=== PATIENT | female | born 1975 | race Caucasian/White ===

== ENCOUNTER → 2017-02-12 | Outpatient (CLI) | payer OTHER ==
[2016-02-18 15:12] VITALS: BP 104/58
[~2017-02-12] MED LIST: BIOT25006 PO; CALC-558 PO; CHOL2000 PO; CRAN500C6 PO; CYAN500T13 PO; CYCL10TA2 PO; ESCITALOPRAM OX10 MG PO; ESOM20CA PO; FERR-26 PO; GABA-586 PO; HYDR-2762 PO; HYDR-963 PO; MULT-47 PO; OXYC5TAB95 PO; PANT40TA3 PO; WARF3TAB7 PO; [UNRECOGNIZED DRUG - CODE] PO
[2017-02-12 16:45] LABS: BASO # 0.1 x10^3/uL (0.0-0.2); BASO % 1 % (0-3); EOS % 6 % (0-3); HEMATOCRIT 36.5 % (36.0-47.0); LYMPH # 1.9 x10^3/uL (1.0-4.8); LYMPH % 21 % (24-48); MEAN CORPUSCULAR HEMOGLOBIN 29 pg (25-35); MEAN CORPUSCULAR HGB CONC 33 g/dL (31-37); MEAN CORPUSCULAR VOLUME 87 fL (79-100); MONO % 5 % (0-9); NEUT % 68 % (31-73); PLATELET COUNT 244 x10^3/uL (140-400); RED BLOOD COUNT 4.17 x10^6/uL (3.50-5.40); RED CELL DISTRIBUTION WIDTH 13.1 % (11.5-14.5); WHITE BLOOD COUNT 8.9 x10^3/uL (4.0-11.0)
[2017-02-12 16:48] LABS: BILIRUBIN,URINE NEGATIVE (NEG); GLUCOSE,URINE NEGATIVE (NEG); NITRITE,URINE NEGATIVE (NEG); PROTEIN,URINE NEGATIVE (NEG-TRACE)
[2017-02-12 16:56] LABS: PROTHROMBIN TIME PATIENT 12.1 SEC (11.7-14.0)
--- NOTE | 2017-02-12 17:00 | EKG ---
[facility] [address] [place] [address] Test Date: 2017-02-12 Test Time: 17:05:15 Pat Name: WYATT GÓMEZ Department: Room: Gender: F Deck Lid F[employer]: : 1975 Requested By: JOHNNIE BYERS Order Number: [id number] Reading MD: Terri Jacobo Measurements Intervals [place] Rate: 82 P: 48 TN: 136 QRS: 32 QRSD: 76 T: 26 QT: 362 QTc: 426 Interpretive Statements SINUS RHYTHM NORMAL EKG Electronically Signed On 02-13-2017 12:32:45 CDT by Terri Jacobo
[2017-02-12 17:05] LABS: BACTERIA,URINE FEW /HPF (0-FEW); RBC,URINE RARE /HPF (0-2); SQUAMOUS EPITHELIAL CELL,UR OCC /LPF; WBC,URINE OCC /HPF (0-4)
[2017-02-12 17:15] LABS: ALBUMIN 3.8 g/dL (3.4-5.0); CALCIUM 8.8 mg/dL (8.5-10.1); CREATININE 0.6 mg/dL (0.6-1.0); GFR 109.1; POTASSIUM 4.4 mmol/L (3.5-5.1)
--- NOTE | 2017-02-13 08:35 | RAD ---
Exam performed: 2 views of the chest. Indication: PRE-SURG EVAL Date of Service:02/12/2017 6:14 PM . Comparison : None available Findings: PA and lateral radiographs of the chest reveal a normal cardiomediastinal contour. The lungs are clear. No pleural fluid is seen. The visualized osseous structures are unremarkable. Impression: Radiographically normal chest.
== END | disposition home or self-care (01) ==
LOC: SURGPAT 15:46
PROVIDERS: ATTEND Orthopaedic Surgery
DX: Z01.818 Encounter for other preprocedural examination (principal); Z96.652 Presence of left artificial knee joint
CPT/HCPCS: 36415; 71020; 80048; 81001; 82040; 85025; 85610; 85651; 85730; 87641; 93005

== ENCOUNTER 2019-04-29 08:04 | Day surgery (SDC) | payer OTHER ==
[~2019-04-29] VITALS: Ht 157.5 cm; Wt 88.5 kg
[~2019-04-29 08:04] MED LIST changes: +BUPIVACAINE-EPI 0.5%-1:200000 MPF 30 ML VIAL. INJ ONE; -FERR-26 PO; +FERR325T14 PO; -GABA-586 PO; +GABA300C18 PO; -HYDR-2762 PO; +HYDR-2765 PO; +HYDR-3135 PO; -HYDR-963 PO; +HYDROmorphone 2 MG/ML VIAL IV PRN; +IV RINGERS,LACTATED 1000ML 1,000 ML IV SCH; +MORPHINE SULFATE 2 MG/ML VIAL. IV PRN; +OXYC1TAB19 PO; +OXYC5TAB4 PO; -OXYC5TAB95 PO; -PANT40TA3 PO; +PANT40TA77 PO; +PROCHLORPERAZINE 10 MG/2 ML VIAL. IV PRN; +WARF3TAB50 PO; -WARF3TAB7 PO; +ceFAZolin 2GM PREMIX 2 GM/50 ML BAG IV ONE; +fentaNYL PF VIAL 100 MCG/2 ML VIAL IV PRN
[2019-04-29] MEDS ORDERED: DEXAMETHASONE SOD PHOS 4 MG/ML VIAL ONE (08:06)
[2019-04-29] MEDS ORDERED: LIDOCAINE 2% PF 5 ML VIAL. ONE (08:06)
[2019-04-29] MEDS ORDERED: MIDAZOLAM HCL/PF 2 MG/2 ML VIAL. ONE (08:06)
[2019-04-29] MEDS ORDERED: PROPOFOL 20 ML IV ONE (08:06)
[2019-04-29] MEDS ORDERED: fentaNYL PF VIAL 100 MCG/2 ML VIAL ONE (08:06)
[2019-04-29] MEDS ORDERED: ONDANSETRON PF 4 MG/2 ML VIAL. ONE (08:06)
[2019-04-29] MEDS ORDERED: PANT20TA2 PO (08:23)
[2019-04-29] MEDS ORDERED: HYDR-3135 PO (08:31)
[2019-04-29] MEDS ORDERED: GABA600T7 PO (08:32)
[2019-04-29] MEDS ORDERED: SEVOFLURANE 61 TO 120 MINUTES. IH ONE (09:37)
[2019-04-29] MEDS ORDERED: OXYC1TAB22 PO (09:50)
[2019-04-29] MEDS ORDERED: oxyCODONE/APAP 10/325 1 TAB TABLET PO ONE (10:00)
[2019-04-29 10:40] VITALS: BP 128/65
--- NOTE | 2019-04-29 10:55 | DISCH ---
DISCHARGE INSTRUCTIONS Condition on Discharge Condition on Discharge: Stable Activity After Discharge Activity Instructions for Disc: Progressive ambulation Bathing Instructions: Shower-keep dressing dry, No Tub Bath until see Exercise Instruction after Dis: Exercise per therapy Driving Instructions after Dis: Do not drive (usually about 2 weeks before reaction time returns on the right leg to safely stomp on the brakes, could use the left leg instead as a brake foot) Weight Bearing Status after Di: As tolerated Diet after Discharge Diet Texture: Regular Liquid Texture: Thin Liquid Swallowing Supervision: None needed Wound Incision Care Wound/Incision Care: Ice to area for comfort, Keep wound elevated, Change dressing (remove dressing in 3 days may then shower as long as there is no drainage) Contacting the DRAlee after DC Call your doctor for: Concerns you may have Follow-Up Follow up with: Dr. Chauhan 7-10 days Treatment/Equipment after DC Adaptive Equipment Issued: None JOHNNIE CHAUHAN MD Apr 29, 2019 10:55
--- NOTE | 2019-04-29 14:14 | PDOC4 ---
Operative Note Operative Note Date of surgery: 04/29/2019 Preoperative diagnosis: Painful medial plica right knee with history of right knee arthroplasty Postoperative diagnosis: Same Operative procedure: Right knee arthroscopy debridement of medial parapatellar plica Surgeon: Tien Assist: Brendan mcgraw assist Anesthesia: Gen. Estimated blood loss: 5 mL Complications: None Operative indications: Please see my orthopedic clinic note for detailed operative indications and note that Patient is a 43-year-old female that underwent more remote right total knee arthroplasty and had a recent episode of a fall with subsequent pain and clicking over the medial aspect of her knee. Knee x-rays showed a solidly implanted well-positioned components of total knee arthroplasty and she clinically appeared to have symptoms from a medial plica that was popping along with motion of her knee. She had undergone a diagnostic injection into the extra-articular portion of the joint capsule which did significantly decrease her symptoms. She still continues to have some now increasing pain and popping with flexing extending the knee. I had gone over with her the possibility of arthroscopic treatment with removal of the plica and that while this is not certain to take care of all her symptoms I think the diagnostic injection gave good evidence that this seems to be a significant contribution to her problems. We had discussed the risks benefits postoperative course of the procedure including the possibility of infection continued pain nerve or blood vessel damage medical or other anesthetic consultations among other she wishes to proceed with surgical evaluation and treatment. Operative text: Patient was identified procedure verified patient placed in the supine position on the operating table. After adequate amounts of general anesthesia were administered the right lower extremity was prepped and draped in standard sterile fashion with a thigh tourniquet. After timeout was performed patient procedure identified and verified the right lower extremity was exsanguinated by Esmarch bandage tourniquet inflated to 350 [place] is mercury both portals were actually located by spinal needle localization due to the minimal joint space along with the total knee and the joint was systematically examined noted to have good patellofemoral tracking no evidence of any abnormal wear or component displacement no loose bodies in the gutters suprapatellar pouch or notch area and she did as expected have an enfolding of the joint capsule consisting of a medial parapatellar plica which was debrided with the arthroscopic shaver and bipolar electrocautery back to normal tissue that was verified not to be rubbing and clicking on the condyle area of the knee as before. Again continued good patellofemoral tracking and stability throughout range of motion were noted the knee was drained of arthroscopic fluid injected in the portal area with half percent plain Marcaine and portals closed with nylon suture sterile dressings were applied patient was returned to recovery room in stable condition having tolerated procedure well. Brendan luke was present for the procedure assisted in the prepping draping positioning and skin closure JOHNNIE BYERS MD Apr 29, 2019 14:14
== END 2019-04-29 11:15 | disposition home or self-care (01) ==
LOC: SURG 08:04
PROVIDERS: ATTEND Orthopaedic Surgery
DX: M67.51 Plica syndrome, right knee (principal); F32.9 Major depressive disorder, single episode, unspecified; I10 Essential (primary) hypertension; K21.9 Gastro-esophageal reflux disease without esophagitis; Z90.49 Acquired absence of other specified parts of digestive tract; E66.8 Other obesity; Z68.35 Body mass index [BMI] 35.0-35.9, adult; Z98.84 Bariatric surgery status; Z87.39 Personal history of other diseases of the musculoskeletal system and connective tissue; Z96.651 Presence of right artificial knee joint; Z90.710 Acquired absence of both cervix and uterus; Z90.721 Acquired absence of ovaries, unilateral
CPT/HCPCS: 29875; C1782; J0696; J1100; J2001; J2250; J2405; J2704; J3010; J3490